=== PATIENT | female | born 1960 | race Caucasian/White ===

== ENCOUNTER 2016-10-21 15:02 | Emergency (ER) | payer MEDICARE, OTHER ==
--- NOTE | ~2016-10-21 | CR243 ---
[facility]. [facility] A Service of [facility] RADIOLOGY TEXT RESULTS PATIENT: BHAVNA IVERSON LOCATION: SED : [birth year] UNIT #: [id number] AGE: [address]: Shira Grigsby MD SEX: F ORDER DR: [id number] [place] [id number] E MR#: [id number] Acc #: [id number] NAME: BHAVNA IVERSON : 1960 SEX: F STUDY DATE/TIME: 10/21/2016 14:30 UNIT: SED ROOM: STUDY DESCRIPTION: CR Thoracic Spine 3 Views Attending Physician: Shira Grigsby M.D. Ordering Physician: Shira Grigsby M.D. Primary Care Physician: Jessica Asif A.P.R.N. MEDICAL IMAGING REPORT This report is preliminary unless electronic signature is present. EXAM Thoracic spine 10/21/2016 HISTORY 56-year-old female with severe back pain for 2 days. No specific injury. COMPARISON None. FINDINGS 3 views of the thoracic spine demonstrate no acute fracture or subluxation. Vertebral body heights and alignment are normally maintained. Disc spaces are within normal limits. Cervicothoracic junction unremarkable. Postsurgical changes from anterior cervical fusion are noted. IMPRESSION Unremarkable thoracic spine. Dictated by... Chapo Reyes M.D. THIS IS AN ELECTRONICALLY VERIFIED REPORT Chapo Reyes M.D. at 10/23/2016 7:47 AM RYAN/nury TD: 10/22/2016 13:39 JOB #: [id number] MEDICAL IMAGING REPORT
--- NOTE | ~2016-10-21 | CR181 ---
[facility] A Service of [facility] RADIOLOGY TEXT RESULTS PATIENT: BHAVNA IVERSON LOCATION: SED : [birth year] UNIT #: [id number] AGE: [address]: Shira Grigsby MD SEX: F ORDER DR: [id number] [place] [id number] E MR#: [id number] Acc #: [id number] NAME: BHAVNA IVERSON : 1960 SEX: F STUDY DATE/TIME: 10/21/2016 14:30 UNIT: SED ROOM: STUDY DESCRIPTION: CR Lumbar Spine 2 or 3 Views Attending Physician: Shira Grigsby M.D. Ordering Physician: Shira Grigsby M.D. Primary Care Physician: Jessica Asif A.P.R.N. MEDICAL IMAGING REPORT This report is preliminary unless electronic signature is present. EXAM Lumbar spine 10/21/2016 HISTORY Low back pain for 2 days. No specific injury. COMPARISON Lumbar spine 12/22/2013. CT abdomen and pelvis 03/27/2016. FINDINGS 3 views of the lumbar spine demonstrate no acute fracture or subluxation. Vertebral body heights and alignment are normally maintained. Mild multilevel facet degeneration. Disc spaces are within expected limits. Atherosclerotic calcification of the abdominal aorta. Cholecystectomy clips right upper quadrant. Sacrum and SI joints intact. IMPRESSION 1. No acute lumbar spine injury. 2. Mild multilevel facet degeneration. 3. Atherosclerotic calcification of the abdominal aorta. Dictated by... Chapo Reyes M.D. THIS IS AN ELECTRONICALLY VERIFIED REPORT Chapo Reyes M.D. at 10/23/2016 7:47 AM RYAN/nury TD: 10/22/2016 13:40 JOB #: [id number] [facility] A Service [facility] RADIOLOGY TEXT RESULTS PATIENT: BHAVNA IVERSON LOCATION: SED : [birth year] UNIT #: [id number] AGE: [address]: SebShira P SEX: F ORDER DR: MEDICAL IMAGING REPORT
[2016-10-21 14:21] LABS: URINE SOURCE CLEAN CATCH
[2016-10-21 14:24] LABS: URINE APPEARANCE CLEAR; URINE BILIRUBIN NEG (NEG); URINE BLOOD TRACE-INTACT (NEG); URINE COLOR YELLOW; URINE GLUCOSE 300 MG/DL (NORM); URINE KETONE TRACE (NEG); URINE LEUKOCYTE ESTERASE NEG (NEG); URINE NITRATE NEG (NEG); URINE PH 5.5 (5-8); URINE PROTEIN TRACE (NEG); URINE SPECIFIC GRAVITY 1.015 (1.003-1.035); URINE UROBILINOGEN 0.2 MG/DL (NORM)
[2016-10-21 14:26] LABS: MICRO INDICATED? YES
[2016-10-21 14:34] LABS: CULTURE INDICATED? NO; URINE BACTERIA NEG (NEG); URINE MUCUS PRESENT; URINE SQUAMOUS EPITHELIAL CELL MODERATE /[HPF]
[~2016-10-21 15:02] MED LIST: AMBIEN10 MG PO; AMITRYPTYLINE PO; BENTYL20 MG PO; CARAFATE1 G PO; CRESTOR PO; DESYREL100 MG PO; FAMOTIDINE PO; HELIDAC KIT PO; HUMALOG100 U/ML SUBQ; KLONOPIN PO; LANTUS100 U/ML; LANTUS100 U/ML SUBQ; LATUDA20 MG PO; LATUDA60 MG PO; LOMOTIL WHITE2.5 MG PO; LUNESTA; METFORMIN PO; NEURONTIN300 MG PO; NORCO 10-325 TA1 TAB PO; NORCO 5/325 TAB1 TAB PO; NOVOLIN R100 UNITS/; NOVOLOG100 UNITS/ SUBQ; PRISTIQ100 MG PO; PROTONIX PO; RISPERDAL1 M1 PO; TAMOXIFEN CITRA20 MG PO; TRAMADOL HCL50 M2 PO; VICTOZA0.6 MG/0.1 SQ; VITAMIN D350000 UNIT PO; XANAX1 MG PO; ZANAFLEX4 M1 PO
== END 2016-10-21 15:04 | disposition home or self-care (01) ==
LOC: SED 15:02
PROVIDERS: Student in an Organized Health Care Education/Training Program
DX: G89.29 Other chronic pain (principal); M54.9 Dorsalgia, unspecified; E11.9 Type 2 diabetes mellitus without complications; I10 Essential (primary) hypertension; F20.9 Schizophrenia, unspecified; Z88.5 Allergy status to narcotic agent
CPT/HCPCS: 72072; 72100; 81003; 99283; 99284

== ENCOUNTER 2016-11-01 16:37 | Inpatient (IN) | payer MEDICARE, OTHER ==
--- NOTE | ~2016-11-01 | CR72 ---
[facility] A Service of [facility] & [facility] RADIOLOGY TEXT RESULTS PATIENT: BHAVNA IVERSON LOCATION: [place] [address] : [birth year] UNIT #: [id number] AGE: [address]: Venice Carrillo MD SEX: F ORDER DR: [id number] [facility] [address] [place], [place] [address] [id number] E MR#: [id number] Acc #: [id number] NAME: BHAVNA IVERSON : 1960 SEX: F STUDY DATE/TIME: 11/01/2016 16:44 UNIT: [facility] ROOM: STUDY DESCRIPTION: CR Chest Single View Portable Attending Physician: Juancho Aldana M.D. Referring Physician: Jessica Asif A.P.R.N. Ordering Physician: Juancho Aldana M.D. Primary Care Physician: Jessica Asif A.P.R.N. MEDICAL IMAGING REPORT This report is preliminary unless electronic signature is present EXAM Portable chest x-ray 11/01/2016 HISTORY Dizziness, lost balance, weakness. Neck pain, left side head and facial pain, bruise under left eye. Fell in tub. Prior history of breast cancer. Former smoker. Prior cardiac ablation. History of diabetes, MS, gastroesophageal reflux disease. AP radiograph of the chest is presented. COMPARISON STUDIES No comparisons. FINDINGS The lower cervical spine fixation hardware grossly intact in single projection. No acute appearing bony abnormality. The heart is upper limits of normal in size. The lungs are moderately well inflated. There is no evidence of acute infectious or inflammatory disease, pleural effusion or pneumothorax. No suspicious nodule. Dictated by... Saroj Smith M.D. THIS IS AN ELECTRONICALLY VERIFIED REPORT Saroj Smith M.D. at 11/02/2016 5:55 PM Divya TD: 11/01/2016 17:11 JOB #: [id number] MEDICAL IMAGING REPORT Page 1 of 1 COPY
--- NOTE | ~2016-11-01 | HP ---
Unit #: [id number] #: [id number] Patient: BHAVNA IVERSON [id number] [address] [place], [place] [address] [id number] I MR#: [id number] NAME: BHAVNA IVERSON ROOM: 241 Age: 56 Sex: F Admission Date: 11/01/2016 : 1960 Attending Physician: Venice Carrillo M.D. Referring Physician: Jessica Asif A.P.R.N. Primary Care Physician: Jessica Asif A.P.R.N. HISTORY AND PHYSICAL CHIEF COMPLAINT History of fall and uncontrolled sugars. HISTORY OF PRESENTING ILLNESS A 56-year-old female who has multiple medical problems including MS, diabetes mellitus, history of breast cancer, history of cardiac ablation for arrhythmia, history of depression, and degenerative disc disease, has been having multiple falls. According to patient, she lost balance and fell backwards and started having pain. Patient called the ambulance and was transferred to the ER and is being admitted for uncontrolled diabetes mellitus, UTI, maxillary fracture, and neck pains. According to patient, she is not very compliant with her diet and her insulin, and her sugars have been running very high. She follows up with Jessica Asif A.P.R.N., at Dr. Jurado's office. She has a history of MS. She is not able to ambulate well. She follows up with neurologist and is on medications. She does not think this has anything to do with MS. According to her, most likely it is uncontrolled diabetes. She has a history of cardiac arrhythmias and has had ablation in the past. She does not complain of chest pain, does not complain of shortness of breath, and does not complain of abdominal pain, but she does complain of weakness of the lower extremities and numbness off and on. But these are her symptoms that go along with MS according to her. She does not complain of dysuria, but she does complain of polyuria and nocturia. No complaint of blood in the urine. No complaint of fever, chills, or rigors. PAST MEDICAL HISTORY 1. Diabetes mellitus type 2, uncontrolled. 2. Multiple sclerosis, follows up with neurologist. 3. Breast cancer, status post radiation therapy and lumpectomy. 4. Cardiac ablation for arrhythmia in 1995. 5. Depression and anxiety. 6. Degenerative disc disease. 7. Insomnia. 8. Peptic ulcer disease. PAST SURGICAL HISTORY 1. Cardiac ablation. 2. Tonsillectomy. 3. Cholecystectomy. 4. Back surgery x2. 5. Left breast surgery. 6. Right ankle surgery. 7. Skin graft from the right thigh. Unit #: [id number] #: [id number] Patient: BHAVNA IVERSON CODEINE CAUSES RASH. SOCIAL HISTORY Patient lives at home with her mother. She has no history of smoking, alcohol, or drug abuse. FAMILY HISTORY Strong family history of diabetes mellitus. Patient's grandfather and uncle on the maternal side have coronary artery disease. No family history of multiple sclerosis. REVIEW OF SYSTEMS As per History of Presenting Illness. PHYSICAL EXAMINATION GENERAL: Patient is lying in bed and does not seem to be in any respiratory distress. VITAL SIGNS: Blood pressure is 140/76, respiratory rate 16, pulse 91, temperature 98, and oxygen saturation is 99%. HEENT: Head is normocephalic. On the left neck and facial area there is tenderness present. CHEST: Fair air entry. No additional sounds. CARDIOVASCULAR: S1 and S2 positive. Regular rhythm. ABDOMEN: Soft, obese. EXTREMITIES: Pulses are palpable. Negative edema. CENTRAL NERVOUS SYSTEM: Awake, alert, and oriented x3. DIAGNOSTIC STUDIES LABORATORY: WBC 7.2, hemoglobin 12.2, hematocrit 37.3, and platelet count of 160,000. Sodium 128, potassium 4.8, chloride 95, blood sugar 610, BUN 22, and creatinine 1. Liver enzymes are stable. Alcohol 5. Troponin is less than 0.05. Urinalysis showed 4+ bacteria. IMAGING: CT scan of the head without contrast was done which shows air-fluid level with internal gas in the left maxillary sinus. Age advanced cerebral and cerebellar volume loss. CT scan of the maxillofacial area was done which shows air-fluid level within the left maxillary sinus with questionable subtle buckling of the lateral wall of the left maxillary sinus. Findings likely reflect subtle acute fracture of the left maxilla without any significant displacement. No evidence of orbital floor involvement. CT scan of the cervical spine was done which shows no acute finding in the cervical spine, no fracture, anterior fusion from C4-C6, mild bilateral bony outlet foraminal narrowing at C5-C6 secondary to broad-based marginal osteophyte, and patchy subsegmental infiltrates in the anteromedial right upper lobe. Chest x-ray shows lung are moderately well inflated. There is no evidence of acute infectious or inflammatory disease. ASSESSMENT AND PLAN Patient is being admitted to medical/surgical unit with: 1. History of fall causing subtle nondisplaced fracture of the left maxilla. Continue pain management. 2. Urinary tract infection. Urine culture is positive for more than 100,000 gram-positive rods. Patient is being started on IV Rocephin 1 gram q.24 hours. Urine culture is pending. 3. Diabetes mellitus, uncontrolled. Patient's home medications have Unit #: [id number] #: [id number] Patient: BHAVNA IVERSON been adjusted and Accu-Cheks a.c. and at bedtime with insulin sliding scale are being done. Hemoglobin A1c will be ordered. 4. History of multiple sclerosis. Continue home medications. 5. Neck pain, possible cervical strain. CT scan of the neck was done which does not show any acute fracture. 6. Please refer to progress note for further orders. 1. Dictated by Gabby Moseley TD: 11/02/2016 14:43 JOB #: [id number] HISTORY AND PHYSICAL Page 1 of 1 X Venice Carrillo MD X HISTORY AND PHYSICAL
--- NOTE | ~2016-11-01 | CT101 ---
[facility] A Service of [facility] RADIOLOGY TEXT RESULTS PATIENT: BHAVNA IVERSON LOCATION: [place] [address]01 : [birth year] UNIT #: [id number] AGE: [address]: Venice Carrillo MD SEX: F ORDER DR: [id number] [facility] [address] [place], [place] [address] [id number] E MR#: [id number] Acc #: [id number] NAME: BHAVNA IVERSON : 1960 SEX: F STUDY DATE/TIME: 11/01/2016 16:38 UNIT: [facility] ROOM: STUDY DESCRIPTION: CT Maxillofacial Area Wo Cont Attending Physician: Juancho Aldana M.D. Referring Physician: Jessica Asif A.P.R.N. Ordering Physician: Juancho Aldana M.D. Primary Care Physician: Jessica Asif A.P.R.N. MEDICAL IMAGING REPORT This report is preliminary unless electronic signature is present EXAM CT maxillofacial without IV contrast COMPARISON None INDICATIONS 56-year-old female with facial pain after falling today. FINDINGS This CT exam was performed with one or more of the following radiation dose reduction techniques: Automatic exposure control, adjustment of mA and/or kV according to patient size, and iterative reconstruction. Axial CT imaging of the facial bones was performed. Coronal and sagittal reformats were constructed. Lack of IV contrast limits evaluation of soft tissues. Visualized airway appears widely patent. Air-fluid level with internal gas again noted within the left maxillary sinus as compared to CT head of the same date. Please see separate CT head for intracranial findings. Small amount of subcutaneous gas is seen just above the inferior rim of the left orbit and there is extraconal gas tracking inferiorly in the left orbit. There is questionable buckling of the lateral wall of the left maxillary sinus, which is thought to be present on both the axial images and the coronal reformat. There is no displacement. The bony orbits appear intact without evidence of displacement either. The extraocular muscles appear symmetric. IMPRESSION Air-fluid level within the left maxillary sinus with questionable subtle buckling of the lateral wall of the left maxillary sinus. There is also subcutaneous gas seen at the superior anterior corner of the maxilla and STS. [facility] A Service of [facility] RADIOLOGY TEXT RESULTS PATIENT: BHAVNA IVERSON LOCATION: A 241-01 : [birth year] UNIT #: [id number] AGE: [address]: Venice Carrillo MD SEX: F ORDER DR: there is gas tracking in the inferior extraconal space of the left orbit. Findings likely reflect subtle acute fracture of the left maxilla without significant displacement. There is no evidence of orbital floor involvement. The globes and extraocular muscles appear intact. Dictated by... Chris Parrish M.D. THIS IS AN ELECTRONICALLY VERIFIED REPORT Chris Parrish M.D. at 11/03/2016 12:15 PM JERAMIE/maximiliano TD: 11/01/2016 20:05 JOB #: [id number] MEDICAL IMAGING REPORT Page 1 of 1 COPY
--- NOTE | ~2016-11-01 | CT52 ---
[facility] A Service of [facility] RADIOLOGY TEXT RESULTS PATIENT: BHAVNA IVERSON LOCATION: [facility] : [birth year] UNIT #: [id number] AGE: [address]: Juancho Aldana MD SEX: F ORDER DR: [id number] [facility] [address] [place], [place] [address] [id number] E MR#: [id number] Acc #: [id number] NAME: BHAVNA IVERSON : 1960 SEX: F STUDY DATE/TIME: 11/01/2016 18:43 UNIT: [facility] ROOM: STUDY DESCRIPTION: CT Cervical Spine Wo Cont Attending Physician: Juancho Aldana M.D. Referring Physician: Jessica Asif A.P.R.N. Ordering Physician: Juancho Aldana M.D. Primary Care Physician: Jessica Asif A.P.R.N. MEDICAL IMAGING REPORT This report is preliminary unless electronic signature is present EXAM CT cervical spine without contrast. DATE OF EXAM 11/01/2016 HISTORY Neck pain after fall today. TECHNIQUE NOTE: This CT exam was performed with one or more of the following radiation dose reduction techniques: automatic exposure control, adjustment of mA and/or kV according to patient size, and iterative reconstruction. FINDINGS CT cervical spine was performed without contrast. There is anterior fusion from C4-C6 with [id number]-[id number] fixation and intervertebral bony implants. Cervical alignment is satisfactory. No subluxation. Mild disc space narrowing at C6-C7. Mild degenerative changes at the anterior junction of C1-C2. No fracture. Mild bilateral bony outlet foraminal narrowing at C5-6 secondary to broad-based marginal osteophyte. Mild patchy infiltrates in the anteromedial right upper lobe and in the posterior left upper lobe, partly visualized. IMPRESSION 1. No acute findings in the cervical spine. 2. No fracture. 3. Anterior fusion from C4-C6. 4. Mild bilateral bony outlet foraminal narrowing at C5-6 secondary to [facility] A Service of [facility] RADIOLOGY TEXT RESULTS PATIENT: BHAVNA IVERSON LOCATION: [facility] : [birth year] UNIT #: [id number] AGE: [address]: Juancho Aldana MD SEX: F ORDER DR: broad-based marginal osteophyte. 5. Patchy subsegmental infiltrates in the anteromedial right upper lobe and in the partly visualized posterior left upper lobe. Dictated by... Brown Romero M.D. THIS IS AN ELECTRONICALLY VERIFIED REPORT Brown Romero M.D. at 11/01/2016 11:27 PM LEIDA/raudel TD: 11/01/2016 20:02 JOB #: [id number] MEDICAL IMAGING REPORT Page 1 of 1 COPY
--- NOTE | ~2016-11-01 | CT71 ---
[facility] A Service of [facility] & [facility] RADIOLOGY TEXT RESULTS PATIENT: BHAVNA IVERSON LOCATION: A 241-01 : [birth year] UNIT #: [id number] AGE: [address]: Venice Carrillo MD SEX: F ORDER DR: [id number] [facility] [address] [place], [place] [address] [id number] E MR#: [id number] Acc #: [id number] NAME: BHAVNA IVERSON : 1960 SEX: F STUDY DATE/TIME: 11/01/2016 18:36 UNIT: [facility] ROOM: STUDY DESCRIPTION: CT Head Wo Contrast Attending Physician: Juancho Aldana M.D. Referring Physician: Jessica Asif A.P.R.N. Ordering Physician: Juancho Aldana M.D. Primary Care Physician: Jessica Asif A.P.R.N. MEDICAL IMAGING REPORT This report is preliminary unless electronic signature is present EXAM CT head without IV contrast INDICATION 56-year-old female with headache after falling today. History of multiple sclerosis and schizophrenia. TECHNIQUE This CT exam was performed with one or more of the following radiation dose reduction techniques: automatic control, adjustment of mA and/or kV according to patient size, and iterative reconstruction. FINDINGS No significant subcutaneous hematoma. There is an air-fluid level with internal gas in the left maxillary sinus. There is questionable buckling of the lateral wall of the left maxillary sinus which may reflect an acute fracture. There is also subcutaneous gas near the anterior wall of the maxillary sinus further suggestive of a possible acute fracture. Mastoid air cells, middle ears and paranasal sinuses are otherwise well aerated. Calcifications of the cavernous internal carotid arteries. There is age advanced cerebral and cerebellar volume loss. No mass effect or abnormal extraaxial fluid collection. No evidence of acute intracranial hemorrhage or definite acute cortical ischemia. There are a few areas of hypoattenuation in the subcortical right frontal white matter which are age indeterminate given lack of comparisons. There is a similar focus hypoattenuation in the subcortical left frontal white matter. CSF containing structure in the region of the left lentiform nucleus, possibly representing a perivascular space or a remote lacunar infarct. There is subcortical hypoattenuation seen focally in the left insula of uncertain acuity given lack of comparisons. There is also CSF density seen focally in the head of the left caudate nucleus. Similar CSF density structure seen near the head of the right caudate. Findings at the caudate nuclei might represent volume averaging from adjacent CSF. [facility] A Service of [facility] RADIOLOGY TEXT RESULTS PATIENT: BHAVNA IVERSON LOCATION: [place] [address]01 : [birth year] UNIT #: [id number] AGE: [address]: Venice Carrillo MD SEX: F ORDER DR: IMPRESSION 1. Air-fluid level with internal gas in the left maxillary sinus. There is questionable buckling of the lateral wall of the left maxillary sinus and there is subcutaneous gas seen anterior to the left maxillary sinus. Findings raising concern for a possible acute fracture. Please see separate report of CT maxillofacial on the same date for a full characterization of any possible facial bone fractures. Alternatively consider an acute sinusitis for the finding in the left maxilla. 2. Age advanced cerebral and cerebellar volume loss. There are areas of definite chronic small vessel ischemic change versus prominent perivascular spaces as described in the body of the report. There are other areas of subcortical white matter hypoattenuation, which are age indeterminate and could represent subacute to chronic small vessel ischemic change or sequela of the patient's known multiple sclerosis. Correlation to exclude signs of acute ischemia is recommended. MRI is a much more sensitive test if clinically indicated. Dictated by... Chris Parrish M.D. THIS IS AN ELECTRONICALLY VERIFIED REPORT Chris Parrish M.D. at 11/03/2016 12:12 PM JERAMIE/alireza TD: 11/01/2016 19:24 JOB #: [id number] MEDICAL IMAGING REPORT Page 1 of 1 COPY
--- NOTE | ~2016-11-01 | US77 ---
[facility] A Service of [facility] RADIOLOGY TEXT RESULTS PATIENT: BHAVNA IVERSON LOCATION: C2A 241-01 : [birth year] UNIT #: [id number] AGE: [address]: Venice Carrillo MD SEX: F ORDER DR: [id number] [facility] [address] [place], [place] [address] [id number] I MR#: [id number] Acc #: [id number] NAME: BHAVNA IVERSON : 1960 SEX: F STUDY DATE/TIME: 11/04/2016 11:43 UNIT: A ROOM: [facility] STUDY DESCRIPTION: US Kidney Bilateral Complete Attending Physician: Venice Carrillo M.D. Referring Physician: Jessica Asif A.P.R.N. Ordering Physician: Brandin Crane M.D. Primary Care Physician: Jessica Asif A.P.R.N. MEDICAL IMAGING REPORT This report is preliminary unless electronic signature is present EXAM Renal ultrasound INDICATIONS Renal insufficiency. Proteinuria and hematuria. COMPARISON None available. FINDINGS The right kidney measures 12.7 cm. The left kidney measures 12.9 cm. Renal cortical thickness and echogenicity is normal. No hydronephrosis. The bladder is normal. Mild increased echogenicity of the hepatic parenchymal is indicative of hepatic steatosis. IMPRESSION Negative renal ultrasound. Dictated by... Santiago Ceron M.D. THIS IS AN ELECTRONICALLY VERIFIED REPORT Santiago Ceron M.D. at 11/05/2016 10:43 AM RAJEEV/alireza TD: 11/05/2016 04:31 JOB #: [id number] MEDICAL IMAGING REPORT Page 1 of 1 COPY
--- NOTE | ~2016-11-01 | DS ---
Unit #: [id number] #: [id number] Patient: BHAVNA IVERSON [id number] [address] [address] [id number] I MR#: [id number] NAME: BHAVNA IVERSON ROOM: 241 Age: 56 Sex: F Admission Date: 11/01/2016 : 1960 Discharge Date: 11/06/2016 Attending Physician: Venice Carrillo M.D. Referring Physician: Jessica Asif A.P.R.N. Primary Care Physician: Jessica Asif A.P.R.N. DISCHARGE SUMMARY FINAL DIAGNOSES 1. History of fall causing subtle nondisplaced fracture of the left maxilla. 2. Urinary tract infection with the urine culture is positive for Escherichia coli more than 100,000 colonies. 3. Uncontrolled diabetes mellitus. 4. History of multiple sclerosis. 5. Neck pain, possible cervical strain. 6. History of breast cancer, status post radiation therapy and lumpectomy now on tamoxifen. 7. History of cardiac ablation for arrhythmia in 1995. 8. Depression and anxiety. 9. Degenerative disk disease. 10. Peptic ulcer disease. DISCHARGE MEDICATIONS Bactrim DS one tablet p.o. b.i.d. for 5 days, Protonix 40 mg daily, Tramadol 50 mg t.i.d. p.r.n., Carafate 1 g q.i.d., Lantus 50 units subcu b.i.d., Humalog 35 units subcu t.i.d., Zestril 10 mg daily, Valium 5 mg t.i.d. p.r.n., Ambien 10 mg q.h.s., Risperdal 1 mg q.h.s., Latuda 60 mg q.a.m., tamoxifen 20 mg daily, Desyrel 100 mg q.h.s., Pristiq 100 mg daily, Neurontin 300 mg t.i.d., tizanidine on p.r.n. basis. DIAGNOSTIC STUDIES LABORATORY RESULTS: Lab workup on discharge; sodium 144, potassium 4.2, chloride 111, BUN 12, creatinine 0.5, magnesium 1.7. TSH 1.61. WBC 4.8, hemoglobin 11.5, hematocrit 35.2, and platelet count of 167. Urine culture is more than 100,000 colonies E coli. IMAGING STUDIES: Significant radiological studies which were done during hospitalization was, 1. CT scan of the head without contrast was done on admission in the ER, which shows air-fluid level with internal gas in the left maxillary sinus, possible sinusitis, age advanced cerebral and cerebellar volume loss. 2. CT of the cervical spine; no acute finding in the cervical spine, no fractures, anterior fusion of C4-C6. 3. Ultrasound of kidneys bilateral was done, which shows negative renal ultrasound. 4. CT scan of maxillofacial was done, which shows air-fluid level within the left maxillary sinus with questionable subtle buckling of the lateral wall of the left maxillary sinus could reflect subtle fracture of the left maxilla without any displacement. Unit #: [id number] #: [id number] Patient: BHAVNA IVERSON CONSULTATION DURING HOSPITALIZATION Dr. Ponce Crane from [facility]. HOSPITAL COURSE Ms. Bhavna Iverson is a 56-year-old female, who has a history of multiple sclerosis, diabetes mellitus, history of breast cancer, depression, degenerative disk disease, has been having multiple falls. She fell down in her tub, lost balance and came to ER. The patient was found to have urinary tract infection, was started on IV Rocephin. She has received IV Rocephin for the last 5 days. She is doing well. She is afebrile and no leukocytosis anymore. We are going to switch to Bactrim and continue for 5 more days. The patient did have hyponatremia on admission, which is completely resolved. Dr. Crane was consulted. This hyponatremia most likely was secondary to severe hyperglycemia, correction has improved it. The patient has proteinuria and hematuria most likely secondary to urinary tract infection. Ultrasound of kidneys were done which were normal. Diabetes mellitus, which is uncontrolled. The patient's medication has been adjusted. Actually, the patient was on 63 mg subcu t.i.d. at home and we have been giving her 45 units subcu b.i.d. of Levemir and her blood sugars have improved. Her blood sugar level this morning is 160. The patient has been advised to take care of her diet most likely she is noncompliant with the diet. OBJECTIVE VITAL SIGNS: On discharge, blood pressure is 155/80, respiratory rate 18, pulse is 73, temperature 99.1. CHEST: Fair air entry. CVS: Regular rhythm. ABDOMEN: Soft. DISCHARGE INSTRUCTIONS 1. Follow up primary care provider in 1 week. 2. Medication as per med rec. 3. The patient may need to see ENT as outpatient if needed for nondisplaced maxillary subtle fracture. 4. The patient is being treated for sinusitis, also that is what per CT scan. 5. The patient was started on blood pressure medications that may need to be adjusted as an outpatient. 6. Diabetic diet counseling done. Dictated by... Venice Carrillo M.D. YENI/bradly TD: 11/07/2016 00:06 JOB #: [id number] Unit #: [id number] #: [id number] Patient: BHAVNA IVERSON DISCHARGE SUMMARY Page 1 of 1 X Venice Carrillo MD X DISCHARGE SUMMARY
--- NOTE | ~2016-11-01 | CO ---
Unit #: [id number] #: [id number] Patient: BHAVNA IVERSON [id number] [place] [id number] I MR#: [id number] NAME: BHAVNA IVERSON ROOM: 241 Age: 56 Sex: F Admission Date: 11/01/2016 : 1960 Attending Physician: Venice Carrillo M.D. Primary Care Physician: Jessica Asif A.P.R.N. Consultation Date: 11/04/2016 CONSULTATION REPORT REASON FOR CONSULTATION Hyponatremia. Thank you very much for asking us to see this patient in consultation. HISTORY OF PRESENT ILLNESS Ms. Gretta Iverson is a 56-year-old female with a history of multiple sclerosis, who presented to the hospital apparently after falling at home, found to have a maxilla fracture on the left, also high glucose, and UTI and was admitted. The patient was noted to have sodium of 128 upon admission. Because of this, I was asked to see the patient. The patient denies having a low sodium in the past that she knows of or ever seeing a kidney doctor. She currently states she is just mainly sore in her chest from where she fell and her left eye is hurting her. She denies any fevers or chills, visual problems, any cough or hemoptysis. No neck pain or neck stiffness. She denies any abdominal pain. No shortness of breath. No urinary symptoms. Currently, she denies any lower extremity swelling. She just cannot hardly get her balance or walk very well. She does state she has not been very compliant with her medications and her sugar control. PAST MEDICAL HISTORY History of multiple sclerosis; history of diabetes mellitus; history of breast CA, status post XRT and lumpectomy; history of gastritis by EGD on 09/22/2016; history of cardiac ablation secondary to dysrhythmias; history of depression; history of degenerative disk disease; status post cholecystectomy; status post back surgery x2. MEDICATIONS Her medicines include Rocephin. She is on Pristiq. She is on Valium, Protonix, Lovenox, Carafate, Ultram, Desyrel, Risperdal, Neurontin. ALLERGIES Include codeine causing nausea. SOCIAL HISTORY She lives with her mom. No smoking. No alcohol. REVIEW OF SYSTEMS As mentioned in the HPI, otherwise negative. FAMILY HISTORY Noncontributory. Unit #: [id number] #: [id number] Patient: BHAVNA IVERSON PHYSICAL EXAMINATION GENERAL: She is alert and oriented. VITAL SIGNS: T-max 98.6, pulse 6 to 89, blood pressure 141 to 155 over 78 to 99. She had 5960 in and out 6025. HEENT: She is normocephalic. She does have bruising around her left eye. Her pupils are equal, round, and reactive to light. Extraocular muscles are intact. Hearing appears to be normal. Mouth clear. No erythema. No exudate. NECK: Supple. No adenopathy. CARDIAC: She appears to have a regular rate and rhythm without a rub. No S3 or S4. LUNGS: Clear bilaterally. No wheezes, rhonchi, or rales. ABDOMEN: Overweight. Bowel sounds positive. Nontender. Soft. EXTREMITIES: She has no edema, clubbing, or cyanosis. Pulses are intact in upper and lower extremities. JOINTS: No joint pain or joint swelling. SKIN: No rashes. NEUROLOGIC: Did not do a very full exam, but she is able to move all extremities. : Deferred. DIAGNOSTIC STUDIES LABORATORY RESULTS: Upon admission showed a sodium of 128, a potassium of 4.8 with a glucose of 610, BUN of 22, creatinine of 1.0 with a bicarb of 25, calcium was 8.6. Normal liver function tests. Her hemoglobin today is 11.5, white count 4800, platelets 167,000. Her BMP today showed a sodium up to 141, potassium 3.8, chloride is 104, bicarb is 25, BUN of 12, creatinine is 0.7 with a glucose of 165. Hemoglobin is 11.5, white count 4800, platelets 167,000. Her UA upon admission showed 1000 glucose, 2+ protein, 50 to 100 rbc's, 50 to 100 wbc's, E coli growing out currently. Her urine over the last year and this year has been showing some intermittent positive protein. ASSESSMENT AND PLAN 1. Hyponatremia. The patient with low sodium upon admission. I think the low sodium is probably just secondary to severe hyperglycemia and with correction of her sugars that has improved. She also could have some component of volume depletion as well, but that is improved with her current fluids. I would like to go ahead and check a TSH and an a.m. cortisol level with fear to make sure no other abnormalities. She was started on p.o. fluid restriction. We will go ahead and discontinue that as well. 2. Proteinuria/hematuria, certainly part of this could be related to urinary tract infection, but she does have some proteinuria over the last several years and it could be related to diabetes versus other. I am going to go ahead and do a random protein and creatinine ratio. Do renal ultrasound. Check an SPEP, JOS. Repeat urinalysis. Depending on what all this shows, depending on what further workup and treatment, I would like to go ahead and also put her on RON inhibitor due to her high blood pressure as well as her proteinuria and diabetes. 3. Hypertension. Blood pressure is elevated some. We will put her on lisinopril 10 mg a day. 4. Multiple sclerosis. 5. Urinary tract infection, currently on treatment. 6. Diabetes mellitus. 7. Status post fall. Unit #: [id number] #: [id number] Patient: BHAVNA IVERSON Dictated by..Gabby Philippe/bradly TD: 11/06/2016 05:32 JOB #: [id number] CONSULTATION REPORT Page 1 of 1 X Antonio Crane MD CONSULTATION REPORT
--- NOTE | ~2016-11-01 | EKG ---
PATIENT: BHAVNA IVERSON UNIT #: [id number] Ventricular Rate: 67 BPM Atrial Rate: 67 BPM P-R Interval: 170 ms QRS Duration: 86 ms Q-T Interval: 428 ms QTC Calculation(Bezet): 452 ms P Dresden: 35 degrees Calculated R Dresden: -9 degrees Calculated T Dresden: 29 degrees Diagnosis Line: Normal sinus rhythm Diagnosis Line: Minimal voltage criteria for LVH, may be normal Diagnosis Line: variant Diagnosis Line: Borderline ECG Diagnosis Line: When compared with ECG of 01-FEB-2015 14:34, Diagnosis Line: Nonspecific T wave abnormality, improved in Diagnosis Line: Inferior leads Diagnosis Line: Nonspecific T wave abnormality, improved in Diagnosis Line: Lateral leads Diagnosis Line: QT has lengthened Diagnosis Line: Confirmed by NORMA GERMAIN MD ([id number]) on 11/01/2016 Diagnosis Line: 9:24:32 PM INTERPRETING MD: MARCELLUS RUBIN
[2016-11-01 17:26] LABS: BASOPHIL% 0.4 % (0-2.5); EOSINOPHIL# 0.1 X10e3 (0-0.7); EOSINOPHIL% 0.8 % (0.0-7.0); HEMATOCRIT 37.3 % (35.0-45.0); HEMOGLOBIN 12.2 gm/dL (12.0-16.0); LYMPHOCYTE# 1.8 X10e3 (1.0-3.5); LYMPHOCYTE% 25.2 % (17.0-45.0); MEAN CELL VOLUME 85.1 FL (83-96); MEAN CORPUSCULAR HEMOGLOBIN 27.9 PG (28-34); MEAN CORPUSCULAR HGB CONC 32.8 g/dL (30-36); MEAN PLATELET VOLUME 8.8 FL (6.5-11.5); MONOCYTE# 0.6 X10e3 (0-1.0); MONOCYTE% 8.4 % (3.0-12.0); NEUTROPHIL# 4.7 X10e3 (1.5-7.1); NEUTROPHIL% 65.2 % (40-75); PLATELET COUNT 160 X10e3 (140-420); RED BLOOD COUNT 4.39 X10e (3.90-5.30); RED CELL DISTRIBUTION WIDTH 13.5 % (11.0-15.5); WHITE BLOOD COUNT 7.2 X10e3 (4.0-10.5)
[2016-11-01 17:29] LABS: DIFF IND NO
[2016-11-01 17:45] LABS: ALBUMIN SERUM 3.7 g/dL (3.5-5.0); BILIRUBIN, DIRECT 0.1 mg/dL (0.0-0.2); BILIRUBIN,INDIRECT 0.2 mg/dL (0.0-0.9); BILIRUBIN,TOTAL 0.3 mg/dL (0.2-2.0); CALCIUM SERUM 8.6 mg/dL (8.4-10.2); GLOM FILT RATE Estimated 63.8 mL/min (>60); POTASSIUM 4.8 mmol/L (3.5-5.1); PROTEIN TOTAL SERUM 6.7 g/dL (6.0-8.3)
[2016-11-01 18:59] LABS: URINE SOURCE CLEAN CATCH
[2016-11-01 19:05] LABS: URINE APPEARANCE TURBID; URINE BILIRUBIN NEG (NEG); URINE BLOOD 3+ (NEG); URINE COLOR YELLOW; URINE GLUCOSE >1000 MG/DL (NEG); URINE KETONE NEG (NEG); URINE LEUKOCYTE ESTERASE 2+ (NEG); URINE NITRATE NEG (NEG); URINE PROTEIN 2+ (NEG); URINE SPECIFIC GRAVITY 1.029 (1.003-1.035)
[2016-11-01 19:07] LABS: CULTURE INDICATED? YES; URBCS1 AUWI 50-100 /[HPF] (0-2); URINE BACTERIA AUWI 4+ (NEGATIVE); URINE SQUAMOUS EPITHELIAL CELL MOD /[HPF]; UWBCS1 AUWI 50-100 (0-5)
[2016-11-01 19:13] LABS: POC - CKMB 1.5 ng/mL (0.0-7.9); POC - TROPONIN <0.05 ng/mL (<=0.05)
[2016-11-01 19:20] LABS: URINE MUCUS PRESENT
[2016-11-01 19:46] LABS: AMPHETAMINE NEG (NEG); BARBITURATES NEG (NEG); BENZODIAZEPINES POS (NEG); COCAINE NEG (NEG); MARIJUANA NEG (NEG); OPIATES NEG (NEG); TRICYCLIC ANTIDEPRESSANTS POS (NEG); U METHADONE NEG (NEG)
[2016-11-01] MEDS ORDERED: DIAZEPAM PO (22:31)
[2016-11-04 06:23] LABS: HEMATOCRIT 35.2 % (35.0-45.0); HEMOGLOBIN 11.5 gm/dL (12.0-16.0); MEAN CELL VOLUME 84.5 FL (83-96); MEAN CORPUSCULAR HEMOGLOBIN 27.5 PG (28-34); MEAN CORPUSCULAR HGB CONC 32.5 g/dL (30-36); MEAN PLATELET VOLUME 8.4 FL (6.5-11.5); RED BLOOD COUNT 4.17 X10e (3.90-5.30); RED CELL DISTRIBUTION WIDTH 13.8 % (11.0-15.5); WHITE BLOOD COUNT 4.8 X10e3 (4.0-10.5)
[2016-11-04 07:11] LABS: BUN/CREATININE RATIO 17.14; CALCIUM SERUM 8.4 mg/dL (8.4-10.2); CREATININE SERUM 0.7 mg/dL (0.6-1.4); GLOM FILT RATE Estimated 98.2 mL/min (>60); POTASSIUM 3.8 mmol/L (3.5-5.1)
[2016-11-04 11:19] LABS: URINE APPEARANCE CLEAR; URINE BILIRUBIN NEG (NEG); URINE BLOOD NEG (NEG); URINE COLOR YELLOW; URINE GLUCOSE >1000 MG/DL (NEG); URINE KETONE NEG (NEG); URINE LEUKOCYTE ESTERASE 1+ (NEG); URINE NITRATE NEG (NEG); URINE PROTEIN NEG (NEG); URINE SPECIFIC GRAVITY 1.015 (1.003-1.035); URINE UROBILINOGEN 0.2 MG/DL (NEG)
[2016-11-04 11:21] LABS: U HYALINE CASTS AUWI 0-2 /[LPF]; URBCS1 AUWI 0-2 /[HPF] (0-2); URINE BACTERIA AUWI NEG (NEGATIVE); URINE SQUAMOUS EPITHELIAL CELL OCC /[HPF]
[2016-11-04 11:49] LABS: CREATININE,RANDOM URINE 45 mg/dL; TOTAL PROTEIN,RANDOM URINE <10 mg/dl (<10)
[2016-11-05 07:14] LABS: CALCIUM SERUM 8.7 mg/dL (8.4-10.2); CREATININE SERUM 0.5 mg/dL (0.6-1.4); GLOM FILT RATE Estimated 109.7 mL/min (>60); MAGNESIUM 1.7 mg/dL (1.6-3.0); POTASSIUM 4.2 mmol/L (3.5-5.1)
[2016-11-06] MEDS ORDERED: LISINOPRIL PO (13:22)
[2016-11-06] MEDS ORDERED: ZANAFLEX6 MG PO (13:24)
[2016-11-06] MEDS ORDERED: BACTRIM DS TABL1 TA1 PO (13:24)
[2016-11-08 22:35] LABS: ANA SCREEN Negative (Negative)
== END 2016-11-06 14:00 | disposition home or self-care (01) | DRG 158 ==
LOC: CED 16:37 → C2A 20:59
PROVIDERS: Emergency Medicine; Internal Medicine Nephrology; Physician Assistant Medical
DX: S02.40DA Maxillary fracture, left side, initial encounter for closed fracture (principal); N39.0 Urinary tract infection, site not specified; E11.65 Type 2 diabetes mellitus with hyperglycemia; E87.1 Hypo-osmolality and hyponatremia; W19.XXXA Unspecified fall, initial encounter; Z79.84 Long term (current) use of oral hypoglycemic drugs; G35 Multiple sclerosis; Z85.3 Personal history of malignant neoplasm of breast; F41.9 Anxiety disorder, unspecified; F32.9 Major depressive disorder, single episode, unspecified; G47.00 Insomnia, unspecified; Z87.11 Personal history of peptic ulcer disease; Z90.49 Acquired absence of other specified parts of digestive tract; R31.9 Hematuria, unspecified; B96.20 Unspecified Escherichia coli [E. coli] as the cause of diseases classified elsewhere
CPT/HCPCS: 36415; 70450; 70486; 71010; 72125; 76770; 80048; 80076; 80307; 81003; 82533; 82553; 82570; 82947; 83735; 84156; 84443; 84484; 85025; 85027; 86038; 86039; 86334; 87086; 87088; 87186; 93005; 96361; 96365; 96375; 97116; 97163; 97167; 97530; 99285; G0480; G8978-GP; G8979-GP; G8987-GO; G8988-GO; J0696; J1650; J1815

== ENCOUNTER 2016-11-10 20:49 | Emergency (ER) | payer MEDICARE, OTHER ==
--- NOTE | ~2016-11-10 | CT71 ---
[facility] A Service of [facility] RADIOLOGY TEXT RESULTS PATIENT: BHAVNA IVERSON LOCATION: [facility] : 64 UNIT #: [id number] AGE: [address]: Juancho Fletcher MD SEX: F ORDER DR: [id number] [facility] [address] [place], [place] [address] [id number] E MR#: [id number] Acc #: [id number] NAME: BHAVNA IVERSON : 1960 SEX: F STUDY DATE/TIME: 11/10/2016 20:42 UNIT: [place] ROOM: STUDY DESCRIPTION: CT Head Wo Contrast Attending Physician: Juancho Fletcher M.D. Ordering Physician: Juancho Fletcher M.D. Primary Care Physician: Jessica Asif A.P.R.N. MEDICAL IMAGING REPORT This report is preliminary unless electronic signature is present EXAM CT of the head without contrast INDICATIONS Fall on November 01 still having left sided headache. Patient fell again last night now having posterior neck pain. TECHNIQUE CT of the head was performed without contrast. This CT exam was performed with one or more of the following radiation dose reduction techniques: automatic control, adjustment of mA and/or kV according to patient size, and iterative reconstruction. Comparison is made with 11/01/2016. FINDINGS There is no evidence of intracranial hemorrhage. There is no evidence of acute cortical based infarction. There is no evidence of focal mass lesion or hydrocephalus. Stable chronic-appearing white matter changes. Carotid siphon calcifications. The included orbits are unremarkable. The visualized paranasal sinuses are unremarkable. The bone windows are unremarkable. IMPRESSION No acute intracranial abnormality Dictated by... Rizwan Martell M.D. THIS IS AN ELECTRONICALLY VERIFIED REPORT Rizwan Martell M.D. at 11/13/2016 8:02 AM TIMI/alireza TD: 11/11/2016 05:31 JOB #: [id number] [facility] A Service of [facility] RADIOLOGY TEXT RESULTS PATIENT: BHAVNA IVERSON LOCATION: [facility] : 64 UNIT #: [id number] AGE: [address]: Juancho Fletcher MD SEX: F ORDER DR: MEDICAL IMAGING REPORT Page 1 of 1 COPY
--- NOTE | ~2016-11-10 | CT52 ---
[facility] A Service of [facility] RADIOLOGY TEXT RESULTS PATIENT: BHAVNA IVERSON LOCATION: [facility] : 64 UNIT #: [id number] AGE: [address]: Juancho Fletcher MD SEX: F ORDER DR: [id number] [facility] [address] [place], [place] [address] [id number] E MR#: [id number] Acc #: [id number] NAME: BHAVNA IVERSON : 1960 SEX: F STUDY DATE/TIME: 11/10/2016 20:59 UNIT: [place] ROOM: STUDY DESCRIPTION: CT Cervical Spine Wo Cont Attending Physician: Juancho Fletcher M.D. Ordering Physician: Juancho Fletcher M.D. Primary Care Physician: Jessica Asif A.P.R.N. MEDICAL IMAGING REPORT This report is preliminary unless electronic signature is present EXAM CT of the cervical spine without contrast INDICATIONS Fall on November 01 and still having a left-sided pain fell again last night and now having posterior neck pain. TECHNIQUE CT of the cervical spine was performed without contrast. Coronal and sagittal reformatted images were obtained. This CT exam was performed with one or more of the following radiation dose reduction techniques: automatic control, adjustment of mA and/or kV according to patient size, and iterative reconstruction. COMPARISON 11/01/2016 FINDINGS There is prior ACDF of C4-C6. Hardware intact. The alignment stable. There is stable mild central canal narrowing at C5 - C6. Stable degenerative change and narrowing of the atlantoaxial joint. There is no evidence of acute fracture or traumatic subluxation or prevertebral soft tissue swelling. IMPRESSION Stable postoperative changes. No acute cervical spine abnormality Dictated by... Rizwan Martell M.D. THIS IS AN ELECTRONICALLY VERIFIED REPORT Rizwan Martell M.D. at 11/13/2016 8:03 AM ARS/rnr [facility] A Service of [facility] RADIOLOGY TEXT RESULTS PATIENT: BHAVNA IVERSON LOCATION: [facility] : 64 UNIT #: [id number] AGE: [address]: Juancho Fletcher MD SEX: F ORDER DR: TD: 11/11/2016 05:36 JOB #: [id number] MEDICAL IMAGING REPORT Page 1 of 1 COPY
--- NOTE | ~2016-11-10 | CR181 ---
[facility] A Service of [facility] RADIOLOGY TEXT RESULTS PATIENT: BHAVNA IVERSON LOCATION: [place] : 64 UNIT #: [id number] AGE: [address]: Juancho Fletcher MD SEX: F ORDER DR: [id number] [facility] [address] [place], [place] [address] [id number] E MR#: [id number] Acc #: [id number] NAME: BHAVNA IVERSON : 1960 SEX: F STUDY DATE/TIME: 11/10/2016 21:13 UNIT: [place] ROOM: STUDY DESCRIPTION: CR Lumbar Spine 2 or 3 Views Attending Physician: Juancho Fletcher M.D. Ordering Physician: Ed Arsenio Diaz M.D. Primary Care Physician: Jessica Asif A.P.R.N. MEDICAL IMAGING REPORT This report is preliminary unless electronic signature is present EXAM Lumbar spine 3 views HISTORY Back pain after recent fall yesterday. FINDINGS 3 views lumbar spine demonstrate [id number] disc space narrowing at L5-S1. Minimal right lumbar curve. Mild hypertrophic changes upper and lower lumbar spine. No fracture or subluxation. IMPRESSION No acute findings. Dictated by... Borwn Romero M.D. THIS IS AN ELECTRONICALLY VERIFIED REPORT Brown Romero M.D. at 11/11/2016 11:20 PM DFL/alireza TD: 11/11/2016 05:44 JOB #: [id number] MEDICAL IMAGING REPORT Page 1 of 1 COPY
--- NOTE | ~2016-11-10 | CR243 ---
[facility] A Service of [facility] RADIOLOGY TEXT RESULTS PATIENT: BHAVNA IVERSON LOCATION: [place] : 64 UNIT #: [id number] AGE: [address]: Juancho Fletcher MD SEX: F ORDER DR: [id number] [facility] [address] [place], [place] [address] [id number] E MR#: [id number] Acc #: [id number] NAME: BHAVNA IVERSON : 1960 SEX: F STUDY DATE/TIME: 11/10/2016 21:13 UNIT: [place] ROOM: STUDY DESCRIPTION: CR Thoracic Spine 3 Views Attending Physician: Juancho Fletcher M.D. Ordering Physician: Ed Arsenio Diaz M.D. Primary Care Physician: Jessica Asif A.P.R.N. MEDICAL IMAGING REPORT This report is preliminary unless electronic signature is present EXAM Thoracic spine 3 views HISTORY Back pain after fall yesterday. FINDINGS 3 views of the thoracic spine demonstrate satisfactory thoracic alignment. No fracture, disc space narrowing or subluxation. Mild hypertrophic changes mid and lower thoracic spine. Lower cervical fusion. IMPRESSION 1. No acute finding. 2. No fracture. 3. Mild hypertrophic changes mid and lower thoracic spine. Dictated by... Brown Romero M.D. THIS IS AN ELECTRONICALLY VERIFIED REPORT Brown Romero M.D. at 11/11/2016 11:20 PM DFL/mikalar TD: 11/11/2016 05:45 JOB #: [id number] MEDICAL IMAGING REPORT Page 1 of 1 COPY
[~2016-11-10 20:49] MED LIST changes: +BACTRIM DS TABL1 TA1 PO; +DIAZEPAM PO; +LISINOPRIL PO; +ZANAFLEX6 MG PO
== END 2016-11-10 22:35 | disposition home or self-care (01) ==
LOC: CED 20:49
DX: M54.6 Pain in thoracic spine (principal); M54.5 Low back pain; W19.XXXA Unspecified fall, initial encounter; Y92.9 Unspecified place or not applicable; K21.9 Gastro-esophageal reflux disease without esophagitis; F20.9 Schizophrenia, unspecified; E11.9 Type 2 diabetes mellitus without complications
CPT/HCPCS: 70450; 72072; 72100; 72125; 99284

== ENCOUNTER → 2016-12-01 | Outpatient (CLI) | payer MEDICARE, OTHER ==
--- NOTE | ~2016-12-01 | MY11 ---
[facility] A Service of [facility] RADIOLOGY TEXT RESULTS PATIENT: BHAVNA IVERSON LOCATION: [facility] : 64 UNIT #: [id number] AGE: [address]: Chapo Burger MD SEX: F ORDER DR: [id number] [place] [id number] [facility]. [place], [place] [address] [id number] O MR#: [id number] Acc #: [id number] NAME: BHAVNA IVERSON : 1960 SEX: F STUDY DATE/TIME: 12/01/2016 12:20 UNIT: [facility] ROOM: STUDY DESCRIPTION: MY Mammogram Screening Dig [place] Attending Physician: Chapo Burger M.D. Ordering Physician: Chapo Burger M.D. Primary Care Physician: Jessica Asif A.P.R.N. MEDICAL IMAGING REPORT This report is preliminary unless electronic signature is present EXAM Bilateral digital screening mammogram with CAD. DATE OF EXAM 12/01/2016 INDICATIONS 56-year-old female with a history of left-sided breast cancer diagnosed in 2014, with an ultrasound-guided core biopsy. Status post radiation therapy. Positive family history of breast cancer and additional history of lymph node biopsy on the left. No current problems. TECHNIQUE CC and MLO views of breast were obtained and reviewed with an FDA-approved CAD device. COMPARISON STUDIES 11/30/15, 09/02/14, 07/14/14, 06/12/14, 11/06/11. FINDINGS The examination was ordered and performed as a screening study. Scar markers present on the left. Breast parenchyma is composed of scattered fibroglandular densities. The pattern is unchanged. There is skin thickening on the left from radiation therapy and there is architectural distortion in the left breast related to prior surgical change. There is no new dominant nodule, mass or suspicious clustered microcalcifications. Benign calcifications are present. Slight progression of probable fat necrosis in the operative bed on the left. IMPRESSION 1. Benign screening mammogram. Architectural distortion related to postop change and radiation therapy changes in the left breast. 1-year followup recommended. [facility] A Service of [facility] RADIOLOGY TEXT RESULTS PATIENT: BHAVNA IVERSON LOCATION: [facility] : 64 UNIT #: [id number] AGE: [address]: Chapo Burger MD SEX: F ORDER DR: Patients over the age of 40 are entered into a reminder system with target due date for the next mammogram. A result letter will also be sent to the patient. BIRADS: 2 Benign findings. Dictated by... Cesar Noonan M.D. THIS IS AN ELECTRONICALLY VERIFIED REPORT Cesar Noonan M.D. at 12/04/2016 7:31 AM Falguni TD: 12/01/2016 19:46 JOB #: [id number] MEDICAL IMAGING REPORT Page 1 of 1 COPY
== END | disposition home or self-care (01) ==
LOC: CWCC 11:18
DX: Z12.31 Encounter for screening mammogram for malignant neoplasm of breast (principal); Z85.3 Personal history of malignant neoplasm of breast; Z80.3 Family history of malignant neoplasm of breast; Z98.890 Other specified postprocedural states
CPT/HCPCS: G0202

== ENCOUNTER → 2017-01-15 | Outpatient (CLI) | payer MEDICARE, OTHER ==
--- NOTE | ~2017-01-15 | BD1 ---
[facility] A Service of [facility] RADIOLOGY TEXT RESULTS PATIENT: BHAVNA IVERSON LOCATION: [facility] : 64 UNIT #: [id number] AGE: [address]: Jessica Asif [employer] SALES CONSULTANT SEX: F ORDER DR: [id number] [address] [address] [id number] O MR#: [id number] Acc #: [id number] NAME: BHAVNA IVERSON : 1960 SEX: F STUDY DATE/TIME: 01/15/2017 12:44 UNIT: [facility] ROOM: STUDY DESCRIPTION: Dexa Bone Dens 1+ Site Attending Physician: Jessica Asif A.P.R.N. Referring Physician: Jessica Asif A.P.R.N. Ordering Physician: Jessica Asif A.P.R.N. Primary Care Physician: Jessica Asif A.P.R.N. MEDICAL IMAGING REPORT This report is preliminary unless electronic signature is present. EXAM DXA scan 01/15/2017 HISTORY Status post menopause with no hormone replacement therapy. Osteopenia. Arthritis and diabetes. FINDINGS Bone mineral density in the lumbar spine from L1-L4 was 1.479 g/cm2 which is 2.5 standard deviations above the mean when compared to the young adult reference population which is within the range of normal. This is 2.5 standard deviations above the mean when compared to the age-matched population. Bone mineral density in the left femoral neck was 1.231 g/cm2 which is 1.4 standard deviations above the mean when compared to the young adult reference population which is within the range of normal. This is 1.9 standard deviations above the mean when compared to the age-matched population. Bone mineral density in the right femoral neck was 1.107 g/cm2 which is 0.5 standard deviations above the mean when compared to the young adult reference population which is within the range of normal. This is 1 standard deviation above the mean when compared to the age-matched population. IMPRESSION Bone mineral density in the lumbar spine and the hips bilaterally within the range of normal. Dictated by... Antonio Gutiérrez M.D. THIS IS AN ELECTRONICALLY VERIFIED REPORT Antonio Gutiérrez M.D. at 01/16/2017 9:56 AM [facility] A Service of [facility] RADIOLOGY TEXT RESULTS PATIENT: BHAVNA IVERSON LOCATION: [facility] : 64 UNIT #: [id number] AGE: [address]: Jessica Asif SEX: F ORDER DR: TD: 01/15/2017 17:31 JOB #: [id number] MEDICAL IMAGING REPORT Page 1 of 1
== END | disposition home or self-care (01) ==
LOC: SRAD 08:30
DX: M81.0 Age-related osteoporosis without current pathological fracture (principal); Z78.0 Asymptomatic menopausal state
CPT/HCPCS: 77080